=== PATIENT | female | born 1965 | race Caucasian/White ===

== ENCOUNTER → 2018-07-06 07:14 | Outpatient (CLI) | payer OTHER, SELFPAY ==
[2018-07-06 09:55] LABS: TSH w/ Reflex to FT4 0.22 uIU/mL (0.47-4.68)
[2018-07-06 10:20] LABS: Free T4, Direct Thyroxine 0.57 ng/dL (0.78-2.19)
== END ==
PROVIDERS: PCP Family Medicine; Visit Provider Registered Nurse
DX: E03.9 Hypothyroidism, unspecified (principal)
CPT/HCPCS: 36415; 84439; 84443

== ENCOUNTER → 2018-08-12 07:42 | Outpatient (CLI) | payer OTHER, SELFPAY ==
[2018-08-12 10:10] LABS: Thyroid Stimulating Hormone 1.23 uIU/mL (0.47-4.68)
== END ==
PROVIDERS: PCP Internal Medicine; Visit Provider Registered Nurse
DX: E03.9 Hypothyroidism, unspecified (principal)
CPT/HCPCS: 36415; 84443

== ENCOUNTER → 2019-07-23 11:17 | Outpatient (CLI) | payer OTHER, SELFPAY ==
--- NOTE | 2019-07-23 | DI.MG.S_ITS ---
BILATERAL DIGITAL SCREENING MAMMOGRAM 3D/2D WITH CAD: 07/23/2019 CLINICAL: Routine screening. Comparison is made to exams dated: 10/25/2016 mammogram, 06/30/2015 mammogram, and 06/10/2014 mammogram - [facility]. The tissue of both breasts is extremely dense, which lowers the sensitivity of mammography. Current study was also evaluated with a Computer Aided Detection (CAD) system. There is an oval asymmetry with an obscured margin in the left breast posterior depth lateral region seen on the craniocaudal view only. No other significant masses, calcifications, or other findings are seen in either breast. IMPRESSION: INCOMPLETE: NEEDS ADDITIONAL IMAGING EVALUATION The oval asymmetry in the left breast is indeterminate. Additional views with possible ultrasound are recommended. This exam was interpreted at Station ID: [id number]. NOTE: For mammograms, a report in lay terms will be sent to the patient. Approximately 15% of breast malignancies will not be visualized mammographically. In the management of a palpable breast mass, a negative mammogram must not discourage biopsy of a clinically suspicious lesion. Electronically Signed By: Victor M Sterling M.D. ecl/:07/23/2019 17:49:06 letter sent: Additional Imaging Needed ACR BI-RADS Category 0: Incomplete 3340F
== END ==
PROVIDERS: PCP Internal Medicine; Visit Provider Internal Medicine
DX: Z12.31 Encounter for screening mammogram for malignant neoplasm of breast (principal)
CPT/HCPCS: 77063; 77067

== ENCOUNTER → 2019-08-27 10:08 | Outpatient (CLI) | payer OTHER, SELFPAY ==
--- NOTE | 2019-08-27 | DI.MG.S_ITS ---
UNILATERAL LEFT DIGITAL DIAGNOSTIC MAMMOGRAM 3D/2D WITH ADDITIONAL VIEWS: 08/27/2019 CLINICAL: Additional evaluation requested from prior study. Comparison is made to exams dated: 07/23/2019 mammogram, 10/25/2016 mammogram, and 06/30/2015 mammogram - [facility]. The tissue of left breast is extremely dense, which lowers the sensitivity of mammography. The oval asymmetry with indistinct margins in the left breast posterior depth lateral region seen on the craniocaudal view only is not seen on additional views. No other significant masses or calcifications are seen in the breast. IMPRESSION: NEGATIVE There is no mammographic evidence of malignancy. A 1 year screening mammogram is recommended. This exam was interpreted at Station ID: [id number]. NOTE: For mammograms, a report in lay terms will be sent to the patient. Approximately 15% of breast malignancies will not be visualized mammographically. In the management of a palpable breast mass, a negative mammogram must not discourage biopsy of a clinically suspicious lesion. Electronically Signed By: Farhad booth/:08/27/2019 10:53:51 letter sent: Normal Exam ACR BI-RADS Category 1: Negative 3341F
== END ==
PROVIDERS: PCP Internal Medicine; Visit Provider Internal Medicine
DX: R92.8 Other abnormal and inconclusive findings on diagnostic imaging of breast (principal)
CPT/HCPCS: 77065; G0279

== ENCOUNTER → 2020-07-31 09:11 | Outpatient (CLI) | payer OTHER, SELFPAY ==
[2020-08-01 06:54] LABS: COVID19 Sendout Not Detected (Not Detect)
== END ==
PROVIDERS: PCP Internal Medicine; Visit Provider Physician Assistant
DX: Z11.59 Encounter for screening for other viral diseases (principal)
CPT/HCPCS: 87635

== ENCOUNTER → 2020-09-29 15:50 | Outpatient (CLI) | payer OTHER, SELFPAY ==
--- NOTE | 2020-09-29 15:52 | DI.MG.S_ITS ---
BILATERAL DIGITAL SCREENING MAMMOGRAM 3D/2D WITH CAD: 09/29/2020 CLINICAL: Routine screening. Comparison is made to exams dated: 07/23/2019 mammogram, 10/25/2016 mammogram, and 06/30/2015 mammogram - [facility]. The tissue of both breasts is extremely dense, which lowers the sensitivity of mammography. Current study was also evaluated with a Computer Aided Detection (CAD) system. No significant masses, calcifications, or other findings are seen in either breast. There has been no significant interval change. IMPRESSION: NEGATIVE There is no mammographic evidence of malignancy. A 1 year screening mammogram is recommended. This exam was interpreted at Station ID: [id number]. NOTE: For mammograms, a report in lay terms will be sent to the patient. Approximately 15% of breast malignancies will not be visualized mammographically. In the management of a palpable breast mass, a negative mammogram must not discourage biopsy of a clinically suspicious lesion. Electronically Signed By: Corina flor/eelanor:09/29/2020 16:22:45 letter sent: Normal Exam ACR BI-RADS Category 1: Negative 3341F
== END ==
PROVIDERS: PCP Internal Medicine; Referring Provider Internal Medicine; Visit Provider Internal Medicine
DX: Z12.31 Encounter for screening mammogram for malignant neoplasm of breast (principal)
CPT/HCPCS: 77063; 77067

== ENCOUNTER → 2020-12-22 16:09 | Outpatient (CLI) | payer OTHER, SELFPAY ==
[2020-12-22] MEDS: COVID-19 VACC, Ad26(JANSSEN)/PF 0.5 ML IM (16:18)
== END ==
PROVIDERS: PCP Internal Medicine; Visit Provider Internal Medicine
DX: Z23 Encounter for immunization (principal)
CPT/HCPCS: 0031A; 91303

== ENCOUNTER → 2021-04-23 16:36 | Outpatient (CLI) | payer OTHER, SELFPAY ==
[2021-04-23 18:49] LABS: Free T3, Triiodothyronine Free 3.97 pg/mL (2.77-5.27); Free T4, Direct Thyroxine 0.66 ng/dL (0.78-2.19)
[2021-04-23 19:02] LABS: Thyroid Stimulating Hormone 0.535 uIU/mL (0.47-4.68)
[2021-04-23 19:14] LABS: Testosterone 15.5 ng/dL (5.71-77.0)
== END ==
PROVIDERS: PCP Internal Medicine; Referring Provider Internal Medicine; Visit Provider Internal Medicine
DX: E03.9 Hypothyroidism, unspecified (principal)
CPT/HCPCS: 36415; 84403; 84439; 84443; 84481

== ENCOUNTER → 2021-10-26 12:26 | Outpatient (CLI) | payer OTHER, SELFPAY ==
--- NOTE | 2021-10-26 | DI.MG.S_ITS ---
BILATERAL DIGITAL SCREENING MAMMOGRAM 3D/2D WITH CAD: 10/26/2021 CLINICAL: Routine screening. Comparison is made to exams dated: 09/29/2020 mammogram, 08/27/2019 mammogram, 07/23/2019 mammogram, 10/25/2016 mammogram, and 06/30/2015 mammogram - [facility]. The tissue of both breasts is extremely dense, which lowers the sensitivity of mammography. Current study was also evaluated with a Computer Aided Detection (CAD) system. No significant masses, calcifications, or other findings are seen in either breast. There has been no significant interval change. IMPRESSION: NEGATIVE There is no mammographic evidence of malignancy. A 1 year screening mammogram is recommended. This exam was interpreted at Station ID: [id number]. NOTE: For mammograms, a report in lay terms will be sent to the patient. Approximately 15% of breast malignancies will not be visualized mammographically. In the management of a palpable breast mass, a negative mammogram must not discourage biopsy of a clinically suspicious lesion. Electronically Signed By: Fredy baez/eleanor:10/26/2021 13:03:42 letter sent: Normal Exam ACR BI-RADS Category 1: Negative 3341F
== END ==
PROVIDERS: PCP Internal Medicine; Referring Provider Internal Medicine; Visit Provider Internal Medicine
DX: Z12.31 Encounter for screening mammogram for malignant neoplasm of breast (principal)
CPT/HCPCS: 77063; 77067

== ENCOUNTER → 2022-02-09 07:49 | Outpatient (CLI) | payer OTHER, SELFPAY ==
[2022-02-09 09:36] LABS: Add Manual Diff / Slide Review NO; Basophils Absolute Auto 0 /uL (0-100); Basophils Percent Auto 0.7 % (0-2); Eosinophils Absolute Auto 100 /uL (0-450); Eosinophils Percent Auto 2.4 % (2-4); Hematocrit 36.3 % (36-46); Hemoglobin 12.3 g/dL (12.0-16.0); Lymphocytes Absolute Auto 1400 /uL (1100-4500); Lymphocytes Percent Auto 40.3 % (25-40); Mean Corpuscular HGB Conc 33.9 % (30-36); Mean Corpuscular Hemoglobin 33.2 PG (26-34); Mean Corpuscular Volume 97.8 fL (80-100); Monocytes Absolute Auto 300 /uL (0-900); Monocytes Percent Auto 7.7 % (3-14); Neutrophils Absolute Auto 1700 /uL (1500-7000); Neutrophils Percent Auto 48.9 % (50-75); Platelet Count 217 X10^3/uL (150-400); Red Blood Cell Count 3.71 X10^6/uL (4.0-5.2); White Blood Cell Count 3.5 X10^3/uL (4.5-11.0)
[2022-02-09 10:01] LABS: Alanine Aminotransferase 21 IU/L (<35); Albumin 4.5 g/dL (3.5-5.0); Albumin Globulin Ratio 1.6 (1.0-2.8); Alkaline Phosphatase 63 U/L (38-126); Aspartate Aminotransferase 30 IU/L (14-36); BUN Creatinine Ratio 16.7 (6-22); Bilirubin Total 0.5 mg/dL (0.2-1.3); Blood Urea Nitrogen 13 mg/dL (7-17); Carbon Dioxide 28 mmol/L (22-32); Chloride 105 mmol/L (98-107); Cholesterol 210 mg/dL (140-199); Estimated Glomerular Filt Rate > 60 mL/min (>60); Globulin 2.8 g/dL (1.7-4.1); Glucose 95 mg/dL (70-100); HDL Cholesterol 66 mg/dL (40-60); HEMOLYSIS < 15 (0-50); LDL Cholesterol Calculated 132 mg/dL (<100); Potassium 4.3 mmol/L (3.4-5.1); Sodium 139 mmol/L (137-145); Total Protein 7.3 g/dL (6.3-8.2); Triglycerides 61 mg/dL (35-150)
[2022-02-09 10:19] LABS: Free T3, Triiodothyronine Free 3.54 pg/mL (2.77-5.27)
[2022-02-09 10:32] LABS: Thyroid Stimulating Hormone 1.04 uIU/mL (0.47-4.68)
== END ==
PROVIDERS: PCP Internal Medicine; Referring Provider Naturopath; Visit Provider Naturopath
DX: Z00.00 Encounter for general adult medical examination without abnormal findings (principal); E03.9 Hypothyroidism, unspecified
CPT/HCPCS: 36415; 80053; 80061; 84439; 84443; 84481; 85025

== ENCOUNTER 2022-05-18 15:07 | Emergency (ER) | payer OTHER, SELFPAY ==
[2022-05-18 15:21] VITALS: BP 117/74; PULSE 63; RESP 18; TEMP 36.9; O2SAT 99
--- NOTE | 2022-05-18 15:32 | DI.RAD.S_ITS ---
PROCEDURE: XR FINGER LT MIN 2V INDICATIONS: r/o fx TECHNIQUE: AP hand, 2 views of the middle finger(s) acquired. COMPARISON: None. FINDINGS: Minimally displaced tuft fracture of the distal phalanx of the 3rd digit with associated soft tissue swelling and likely subcutaneous emphysema concerning for nail bed injury. No dislocation. No additional fractures. . IMPRESSION: Minimally displaced tuft fracture of the distal phalanx with findings suggestive of a nail bed injury. If nail bed injury is clinically noted, this should be treated as an open fracture. Dictated by: Eduardo Pinto D.O. on 05/18/2022 at 15:04 Approved by: Eduardo Pinto D.O. on 05/18/2022 at 15:06
[2022-05-18] MEDS: ACETAMINOPHEN 325 MG TABLET 975 MG PO (16:20)
[2022-05-18] MEDS: LIDOCAINE 2% INJ MDV 10ML 10 MG INJ (16:22)
[2022-05-18] MEDS: TET,DIPH,PERTUSS(ACELL),VAC/PF 0.5 ML SYRINGE IM (16:22)
[2022-05-18] MEDS: IBUPROFEN 400 MG TABLET 800 MG PO (16:22)
[2022-05-18 17:03] VITALS: BP 125/68; PULSE 58; RESP 18; O2SAT 99
--- NOTE | 2022-05-18 17:25 | ED_ITS ---
HPI - Wound/Laceration <Trev No PA-C - Last Filed: 05/18/22 17:46> General Chief Complaint: Wound/Laceration Stated Complaint: Cut middle finger left Time Seen by Provider: 05/18/22 15:13 Source: patient Mode of arrival: Ambulatory History of Present Illness HPI narrative: Patient to emergency room today with complaint of laceration and bleeding to her left middle finger. Patient states this occurred while she was working in her garden and dropped a big stone on her finger. Patient's CTs happened earlier today while she was working in her garden. Denies any other concerns. Patient states that she has sensation in hand and finger has no numbness or tingling he can move the hand without difficulty. Related Data Home Medications Medication Instructions Recorded Confirmed [[place] Vitamins] ##0 01/17/17 08/15/21 thyroid (pork) 48.75 mg tablet 24.375 mg PO DAILY 04/03/20 08/15/21 (Nature-Throid) Previous Rx's Medication Instructions Recorded methylphenidate HCl 10 mg tablet 10 mg PO BID #60 tabs 02/26/22 sertraline 50 mg tablet 75 mg PO DAILY #135 tabs 02/26/22 cephalexin 500 mg capsule 500 mg PO QID #28 caps 05/18/22 Allergies Allergy/AdvReac Type Severity Reaction Status Date / Time No Known Drug Allergies Allergy Verified 08/15/21 11:22 Review of Systems <Trev No PA-C - Last Filed: 05/18/22 17:46> Review of Systems Narrative: R.O.S.: General: No fever, chills, fatigue or other concerns. Cardiovascular: No chest pain, palpitations or other Cardiovascular related concerns. Respiratory: No S.O.B. or other Respiratory related concerns. HEENT: No congestion, ear pain, rhinorrhea, sore throat or tinnitus Gastrointestinal: No nausea, vomiting or other Gastrointestinal related concerns. Skin: Laceration and pain to left distal middle finger. Neurological: Awake, alert and in not apparent distress. No Headaches, changes in vision or other related neurological concerns. Patient History <Trev No PA-C - Last Filed: 05/18/22 17:46> Medical History Low back pain Surgical History Status post epidural steroid injection Social History Smoking Status: Never smoker Smoking Status: Never smoker Exam <Trev No PA-C - Last Filed: 05/18/22 17:46> Narrative Exam Narrative: Patient has laceration to the distal left middle volar finger that is about 2.5 cm in length. Patient also has a laceration to the nailbed of the distal left middle finger that is about 1 cm in length. The patient's nail is loose and partially intact at the nail bed. The finger has moderate bruising and bleeding at this time. Hand has intact sensation to touch good range of motion and good strength. Initial Vital Signs Initial Vital Signs: Vital Signs Temperature 98.5 F 05/18/22 15:21 Pulse Rate 63 05/18/22 15:21 Respiratory Rate 18 05/18/22 15:21 Blood Pressure 117/74 05/18/22 15:21 Pulse Oximetry 99 05/18/22 15:21 Oxygen Delivery Method 05/18/22 15:21 <Jennifer Cherry DO - Last Filed: 05/20/22 02:20> Initial Vital Signs Initial Vital Signs: Vital Signs Temperature 98.5 F 05/18/22 15:21 Pulse Rate 63 05/18/22 15:21 Respiratory Rate 18 05/18/22 15:21 Blood Pressure 117/74 05/18/22 15:21 Pulse Oximetry 99 05/18/22 15:21 Oxygen Delivery Method 05/18/22 15:21 Procedures <Trev No PA-C - Last Filed: 05/18/22 17:46> Laceration Repair Laceration 1: Site: hand Side (If applicable): left Size (cm): 2.5 Description: other (Laceration to distal volar) Depth: simple, single layer Local Anesthetic: lidocaine 2% Amount of anesthesia used (mL): 10 Skin layer closed with: other (Chromic Gut Eithicon on nail bed and 5.0 Ethilon to volar finger and nail. ) Number of sutures: 8 Technique: simple, interrupted Course <Trev No PA-C - Last Filed: 05/18/22 17:46> Orders Ordered: Discontinued Medications Acetaminophen (Acetaminophen 325 Mg Tablet) 975 mg PO NOW ONE Stop: 05/18/22 16:01 Last Admin: 05/18/22 16:20 Dose: 975 mg Documented By: NATIVIDAD Diphtheria/Tetanus/Acell Pertussis (Diph,Pertuss(Acell),Tet Vac/Pf 0.5 Ml Syringe) 0.5 ml IM .ONCE ONE Stop: 05/18/22 15:57 Last Admin: 05/18/22 16:03 Dose: Not Given Documented By: NATIVDIAD(2) Diphtheria/Tetanus/Acell Pertussis (Tet,Diph,Pertuss(Acell),Vac/Pf 0.5 Ml Syringe) 0.5 ml IM .ONCE ONE Stop: 05/18/22 16:05 Last Admin: 05/18/22 16:22 Dose: 0.5 ml Documented By: NATIVIDAD Ibuprofen (Ibuprofen 400 Mg Tablet) 800 mg PO NOW ONE Stop: 05/18/22 16:01 Last Admin: 05/18/22 16:22 Dose: 800 mg Documented By: NATIVIDAD Lidocaine HCl (Lidocaine 2% Inj Mdv 10ml) 10 mg INJ INTRA-OP ONE Stop: 05/18/22 15:36 Last Admin: 05/18/22 16:22 Dose: 10 mg Documented By: NATIVIDAD Vital Signs Vital signs: Vital Signs - 8 hr 05/18/22 15:21 05/18/22 17:03 Temperature 98.5 F Pulse Rate 63 58 L Respiratory Rate 18 18 Blood Pressure 117/74 125/68 Pulse Oximetry 99 99 Oxygen Delivery Method Room Air Room Air <Jennifer Cherry DO - Last Filed: 05/20/22 02:20> Orders Ordered: Discontinued Medications Acetaminophen (Acetaminophen 325 Mg Tablet) 975 mg PO NOW ONE Stop: 05/18/22 16:01 Last Admin: 05/18/22 16:20 Dose: 975 mg Documented By: NATIVIDAD Diphtheria/Tetanus/Acell Pertussis (Diph,Pertuss(Acell),Tet Vac/Pf 0.5 Ml Syringe) 0.5 ml IM .ONCE ONE Stop: 05/18/22 15:57 Last Admin: 05/18/22 16:03 Dose: Not Given Documented By: NATIVIDAD(2) Diphtheria/Tetanus/Acell Pertussis (Tet,Diph,Pertuss(Acell),Vac/Pf 0.5 Ml Syringe) 0.5 ml IM .ONCE ONE Stop: 05/18/22 16:05 Last Admin: 05/18/22 16:22 Dose: 0.5 ml Documented By: NATIVIDAD Ibuprofen (Ibuprofen 400 Mg Tablet) 800 mg PO NOW ONE Stop: 05/18/22 16:01 Last Admin: 05/18/22 16:22 Dose: 800 mg Documented By: NATIVIDAD Lidocaine HCl (Lidocaine 2% Inj Mdv 10ml) 10 mg INJ INTRA-OP ONE Stop: 05/18/22 15:36 Last Admin: 05/18/22 16:22 Dose: 10 mg Documented By: NATIVIDAD Vital Signs Vital signs: Vital Signs - 8 hr 05/18/22 15:21 05/18/22 17:03 Temperature 98.5 F Pulse Rate 63 58 L Respiratory Rate 18 18 Blood Pressure 117/74 125/68 Pulse Oximetry 99 99 Oxygen Delivery Method Room Air Room Air MDM - Wound/Laceration <Trev No PA-C - Last Filed: 05/18/22 17:46> Imaging Data Extremity x-ray #1: Radiologist's Impression: PROCEDURE:? XR FINGER LT MIN 2V ? INDICATIONS:? r/o fx ? TECHNIQUE:? AP hand, 2 views of the middle finger(s) acquired.? ? COMPARISON:? None. ? FINDINGS:? ? Minimally displaced tuft fracture of the distal phalanx of the 3rd digit with associated soft tissue swelling and likely subcutaneous emphysema concerning for nail bed injury.? No dislocation.? No additional fractures. .? ? IMPRESSION:? Minimally displaced tuft fracture of the distal phalanx with findings suggestive of a nail bed injury.? If nail bed injury is clinically noted, this should be treated as an open fracture. ? ? Dictated by: Eduardo Pinto D.O. on 05/18/2022 at 15:04 ? ? Approved by: Eduardo Pinto D.O. on 05/18/2022 at 15:06 ? [facility] Narrative Medical decision making narrative: Patient to emergency room today with complaint laceration to left distal middle finger that occurred today while she was working in her garden. X-ray was done revealed a tuft fracture to the left distal middle finger. Provider used absorbable chromic gut Ethilon suture to close the laceration on the nail bed. Provided then used 5.0 suture Ethilon suture to insert 5 interruped sutured to close the 2.5 cm laceration on the volar distal middle finger and 3 interrupted sutures to secure the nail to the nail bed. Discharge Plan Departure Patient Disposition: Home Clinical Impression: Laceration Instructions: DI for Laceration Repair Activity Restrictions/Additional Instructions: *You have been diagnosed with laceration to distal left middle finger. I have also referred you to [facility] with Dr Brittany Gordillo. Please follow up with that provider. Also please refrain from allowing your sutured finger to be immersed in water. Also please refrain from any major activity involving your sutured finger. I suggest you return to this Emergency room or our Urgent care for suture removal in 7-10 days. *What to do: *Please continue to take your regular medications as directed. [x ] New medication written as a paper prescription *Please follow up with your primary care provider in 2-3 days, call for an appointment. Let them know you were seen in the Emergency Department and that we ask that you be seen in follow up. We will electronically transmit a record of today's note if your PCP is in our system *If you do not have a primary care provider please contact the [facility] Resource line at [phone]. They will ask some questions about your medical history and help get you set up with a doctor in the community. *Return to Emergency Department if you should have any new, worsening or concerning symptoms, such as [fever greater than 101 F, shaking chills, worsening pain, persistent vomiting or other bothersome symptoms] Prescriptions: New cephalexin 500 mg capsule 500 mg PO QID Qty: 28 0RF No Action Nature-Throid 48.75 mg tablet 24.375 mg PO DAILY sertraline 50 mg tablet 75 mg PO DAILY Qty: 135 3RF methylphenidate HCl 10 mg tablet 10 mg PO BID Qty: 60 0RF [[place] Vitamins] Qty: 0 Referrals: Roselyn Ascencio ARNP [Primary Care Provider] - Xin Gordillo MD [Physician] - (Pt had complicated suture repair of laceration to her distal left middle finger and nail bed. ) Visit Report Forms: Patient Portal/API <Jennifer Cherry DO - Last Filed: 05/20/22 02:20> Cosign ED Attending Cosmonserratature Attestation: I was immediately available in the department for consultation. Documentation has been reviewed. I agree with assessment and plan.
== END 2022-05-18 17:38 | disposition home or self-care (01) ==
PROVIDERS: Emergency Provider Physician Assistant; PCP Internal Medicine
DX: S61.213A Laceration without foreign body of left middle finger without damage to nail, initial encounter (principal); W22.8XXA Striking against or struck by other objects, initial encounter; Z23 Encounter for immunization
CPT/HCPCS: 12001; 73140; 90471; 99283; 99284; 90715

== ENCOUNTER → 2022-12-06 07:59 | Outpatient (CLI) | payer OTHER, SELFPAY ==
--- NOTE | 2022-12-06 | DI.MG.S_ITS ---
BILATERAL DIGITAL SCREENING MAMMOGRAM 3D/2D WITH CAD: 12/06/2022 CLINICAL: Routine screening. Comparison is made to exams dated: 10/26/2021 mammogram, 09/29/2020 mammogram, and 07/23/2019 mammogram - [facility]. Both breasts are extremely dense, which lowers the sensitivity of mammography (category d />75% glandular tissue). Current study was also evaluated with a Computer Aided Detection (CAD) system. No significant masses, calcifications, or other findings are seen in either breast. There has been no significant interval change. IMPRESSION: NEGATIVE There is no mammographic evidence of malignancy. A 1 year screening mammogram is recommended. Based on the Tyrer Cuzick model (a risk assessment model) the patient's lifetime risk is 13.7% and her 10 year risk is 5.1%. According to the ACR, ACS, and NCCN guidelines, an annual breast MRI exam along with mammogram is recommended if the patient's lifetime risk is 20% or greater. This exam was interpreted at Station ID: [id number]. NOTE: For mammograms, a report in lay terms will be sent to the patient. Approximately 15% of breast malignancies will not be visualized mammographically. In the management of a palpable breast mass, a negative mammogram must not discourage biopsy of a clinically suspicious lesion. Electronically Signed By: Dick saunders/eleanor:12/06/2022 12:18:38 letter sent: Normal Exam ACR BI-RADS Category 1: Negative 3341F
== END ==
PROVIDERS: PCP Internal Medicine; Referring Provider Internal Medicine; Visit Provider Internal Medicine
DX: Z12.31 Encounter for screening mammogram for malignant neoplasm of breast (principal)
CPT/HCPCS: 77063; 77067

== ENCOUNTER 2023-01-31 10:27 | Day surgery (SDC) | payer OTHER, SELFPAY ==
[2023-01-31 10:41] VITALS: BP 105/64; PULSE 66; RESP 16; TEMP 35.8; O2SAT 99; BMI 21.7
--- NOTE | 2023-01-31 11:20 | PM.HP.1 ---
History of Present Illness History of Present Illness Date Patient Seen: 01/31/23 Time Patient Seen: 11:20 Chief complaint: Colonoscopy Narrative: Ms. Shrestha presents today for a screening colonoscopy. It has been 10 years since her last exam and it was done at [facility]. I see a visit encounter for around that time by Dr. Coleman but the reports in the historical record are saying ?report not available.? She has no family history of colon cancer though her mother does have ?bowel issues? and diverticula but no cancer; she has had some similar issues that improved after stopping to eat dairy. Otherwise she has no concerning symptoms no bleeding or changes in her bowel habits. [facility] Medical History (Updated 01/31/23 @ 11:23 by Eden Morrison MD) Low back pain Vitamin D deficiency Surgical History Status post epidural steroid injection Social History household members: friend(s) Smoking Status: Never smoker alcohol intake: current Meds Home Medications and Allergies Home Medications Medication Instructions Recorded Confirmed Type [Du [place]ra Vitamins] ##0 01/17/17 01/03/23 History sertraline 50 mg tablet 50 mg PO DAILY #90 tabs 09/20/22 01/31/23 Rx thyroid (pork) 30 mg tablet 30 mg PO DAILY 11/14/22 01/31/23 History ([place] Thyroid) sodium,potassium,mag sulfates 17.5 See Rx Instructions PO .COMPLEX 01/23/23 Rx gram-3.13 gram-1.6 gram oral soln #354 mL (Suprep Bowel Prep Kit) Allergies Allergy/AdvReac Type Severity Reaction Status Date / Time No Known Drug Allergies Allergy Verified 01/31/23 10:39 Exam Vital Signs (past 8 hours): - 01/31/23 10:41 Temperature 96.5 F L Pulse Rate 66 Respiratory Rate 16 Blood Pressure 105/64 Pulse Oximetry 99 Oxygen Delivery Method Room Air Oxygen Delivery Method Room Air Const General: cooperative, healthy appearing and comfortable Eyes General: appearance normal, both eyes and all related structures Resp Effort & Inspection: normal respiratory effort and able to speak in complete sentences GI Palpation: soft and No tender Assessment & Plan Assessment and plan (1) Colon cancer screening: Status: Acute Assessment & Plan narrative: Presents today for screening colonoscopy I discussed the risks benefits and alternatives including but not limited to perforation of the colon and an incomplete exam she fully understands these risks and would like to proceed.
[2023-01-31 12:08] VITALS: BP 89/48; PULSE 70; RESP 20; TEMP 36.1; O2SAT 94
[2023-01-31 12:13] VITALS: BP 91/48; PULSE 60; RESP 12; O2SAT 97
[2023-01-31 12:18] VITALS: BP 98/59; PULSE 62; RESP 18; TEMP 36.2; O2SAT 99
[2023-01-31 12:33] VITALS: BP 108/65; PULSE 57; RESP 16; O2SAT 99
--- NOTE | 2023-01-31 13:13 | P.OP.COLON_ITS ---
Operative Date/Time/Diagnoses Date of procedure: 01/31/23 Pre-op diagnosis: colon cancer screening Post-op diagnosis: same Procedure & Clinicians Study performed: colonoscopy screeing Same procedure as scheduled: Yes Indications: Screening for colon cancer, 10 year follow-up Surgeon: Eden Morrison Procedure Notes Procedure in detail: Patient was taken to the endoscopy suite and placed in a left lateral decubitus position.? With the help of an anesthesiologist conscious sedation was induced and maintained throughout the procedure.? A time-out was performed.? Digital rectal exam was performed there were no masses or strictures.? The colonoscope was then introduced into the anal canal and advanced through to the cecum.? There were some twists and turns in the colon that required abdominal pressure. A photograph was obtained of the appendiceal orifice.? The colonoscope was then withdrawn slowly for the course 14 minutes.? The prep was excellent [place] bowel prep score of 3.? The scope was retroflexed and the hemorrhoidal piles were photographed.? Patient tolerated the procedure well and went in good condition to the postoperative care unit.? No polyps were seen. Specimen(s): none sent Complications: none Post-procedure Recommendations: Colonoscopy in 10 years Plan for aftercare: Unless there is a change in family history or the patient develops any symptoms she may follow-up for screening in 10 years.
== END 2023-01-31 12:57 | disposition home or self-care (01) ==
PROVIDERS: PCP Family Medicine; Referring Provider Surgery; Visit Provider Surgery
PROC: 0DJD8ZZ Inspection of Lower Intestinal Tract, Via Natural or Artificial Opening Endoscopic (ICD-10-PCS; CPT 45378; principal; 2023-01-31 11:30)
DX: Z12.11 Encounter for screening for malignant neoplasm of colon (principal)
CPT/HCPCS: 45378; J2704

== ENCOUNTER → 2023-07-24 10:10 | Outpatient (CLI) | payer OTHER, SELFPAY ==
[2023-07-24 11:08] LABS: Add Manual Diff / Slide Review NO; Basophils Absolute Auto 0 /uL (0-100); Basophils Percent Auto 0.6 % (0-2); Eosinophils Absolute Auto 100 /uL (0-450); Eosinophils Percent Auto 1.4 % (2-4); Hematocrit 37.9 % (36-46); Lymphocytes Absolute Auto 1500 /uL (1100-4500); Lymphocytes Percent Auto 31.1 % (25-40); Mean Corpuscular HGB Conc 34.4 % (30-36); Mean Corpuscular Hemoglobin 33.4 PG (26-34); Mean Corpuscular Volume 97.1 fL (80-100); Monocytes Absolute Auto 300 /uL (0-900); Monocytes Percent Auto 6.9 % (3-14); Neutrophils Absolute Auto 2800 /uL (1500-7000); Platelet Count 217 X10^3/uL (150-400); Red Cell Distribution Width 13.2 % (11.6-14.8); White Blood Cell Count 4.7 X10^3/uL (4.5-11.0)
[2023-07-24 11:27] LABS: Alanine Aminotransferase 27 IU/L (<35); Albumin Globulin Ratio 1.7 (1.0-2.8); Alkaline Phosphatase 75 U/L (38-126); Aspartate Aminotransferase 36 IU/L (14-36); BUN Creatinine Ratio 22.4 (6-22); Bilirubin Total 0.9 mg/dL (0.2-1.3); Blood Urea Nitrogen 13 mg/dL (7-17); C-Reactive Protein Quant < 0.5 mg/dL (<1.0); Calcium 9.5 mg/dL (8.4-10.2); Carbon Dioxide 27 mmol/L (22-32); Chloride 100 mmol/L (98-107); Estimated Glomerular Filt Rate > 60 mL/min (>60); Glucose 94 mg/dL (70-100); Potassium 4.6 mmol/L (3.4-5.1); Sodium 135 mmol/L (137-145)
[2023-07-24 11:29] LABS: HEMOLYSIS 94 (0-50)
[2023-07-24 11:42] LABS: Vitamin D 25 Hydroxy (D3) 61.6 ng/mL (30.0-100.0)
[2023-07-24 11:55] LABS: TSH w/ Reflex to FT4 0.87 uIU/mL (0.47-4.68)
[2023-07-24 12:12] LABS: Vitamin B12 379 pg/mL (239-931)
[2023-07-31 08:13] LABS: Percent Free Testosterone 1.31 % (0.50-2.80); Testosterone Free 0.11 ng/dL (0.10-0.85); Testosterone Total 8.2 ng/dL (.)
== END ==
PROVIDERS: PCP Family Medicine; Referring Provider Family Medicine; Visit Provider Family Medicine
DX: F41.9 Anxiety disorder, unspecified (principal); E55.9 Vitamin D deficiency, unspecified; Z86.59 Personal history of other mental and behavioral disorders; F90.2 Attention-deficit hyperactivity disorder, combined type; F32.9 Major depressive disorder, single episode, unspecified; E03.9 Hypothyroidism, unspecified
CPT/HCPCS: 36415; 80053; 82306; 82607; 84402; 84403; 84443; 85025; 86140

== ENCOUNTER → 2024-01-19 09:52 | Outpatient (CLI) | payer OTHER, SELFPAY ==
[2024-01-19 12:40] LABS: Vitamin D 25 Hydroxy (D3) 78.5 ng/mL (30.0-100.0)
[2024-01-19 18:53] LABS: HEMOLYSIS < 15 (0-50); Potassium 4.4 mmol/L (3.4-5.1)
[2024-01-19 18:54] LABS: Alanine Aminotransferase 19 IU/L (<35); Albumin 4.5 g/dL (3.5-5.0); Albumin Globulin Ratio 1.6 (1.0-2.8); Alkaline Phosphatase 68 U/L (38-126); Aspartate Aminotransferase 27 IU/L (14-36); BUN Creatinine Ratio 26.2 (6-22); Bilirubin Total 0.7 mg/dL (0.2-1.3); Blood Urea Nitrogen 17 mg/dL (7-17); Calcium 9.6 mg/dL (8.4-10.2); Carbon Dioxide 27 mmol/L (22-32); Chloride 105 mmol/L (98-107); Cholesterol 232 mg/dL (140-199); Estimated Glomerular Filt Rate > 60 mL/min (>60); Globulin 2.9 g/dL (1.7-4.1); Glucose 93 mg/dL (70-100); HDL Cholesterol 82 mg/dL (40-60); LDL Cholesterol Calculated 141 mg/dL (<100); Sodium 138 mmol/L (137-145); Total Protein 7.4 g/dL (6.3-8.2); Triglycerides 46 mg/dL (35-150)
[2024-01-20 10:58] LABS: Progesterone, Total 1.98 ng/mL
[2024-01-23 03:33] LABS: Free T4, Direct Thyroxine 1.06 ng/dL (0.78-2.19)
[2024-01-23 03:47] LABS: Thyroid Stimulating Hormone 0.492 uIU/mL (0.47-4.68)
[2024-01-24 15:19] LABS: Estrogen 46 pg/mL (40-244)
== END ==
LOC: LAB 09:54
PROVIDERS: PCP Nurse Practitioner; Referring Provider Nurse Practitioner; Visit Provider Nurse Practitioner
DX: F41.9 Anxiety disorder, unspecified (principal); F32.2 Major depressive disorder, single episode, severe without psychotic features; E03.9 Hypothyroidism, unspecified; F43.21 Adjustment disorder with depressed mood; Z83.3 Family history of diabetes mellitus; Z79.890 Hormone replacement therapy
CPT/HCPCS: 36415; 80053; 80061; 82306; 82672; 84144; 84439; 84443

== ENCOUNTER → 2024-01-22 09:52 | Outpatient (CLI) | payer OTHER, SELFPAY ==
[2024-01-22 11:35] LABS: Hemoglobin A1C% w Est Avg Glu 5.2 % (4.0-6.0)
== END ==
PROVIDERS: PCP Nurse Practitioner; Referring Provider Nurse Practitioner; Visit Provider Nurse Practitioner
DX: Z83.3 Family history of diabetes mellitus (principal); Z79.890 Hormone replacement therapy
CPT/HCPCS: 36415; 83036

== ENCOUNTER → 2024-06-12 08:36 | Outpatient (CLI) | payer BC, SELFPAY ==
[2024-06-12 09:14] LABS: Add Manual Diff / Slide Review NO; Basophils Absolute Auto 0 /uL (0-100); Basophils Percent Auto 0.5 % (0-2); Eosinophils Absolute Auto 100 /uL (0-450); Eosinophils Percent Auto 2.1 % (2-4); Lymphocytes Absolute Auto 1400 /uL (1100-4500); Lymphocytes Percent Auto 38.8 % (25-40); Mean Corpuscular HGB Conc 34.3 % (30-36); Mean Corpuscular Volume 99.2 fL (80-100); Monocytes Absolute Auto 300 /uL (0-900); Monocytes Percent Auto 8.3 % (3-14); Neutrophils Absolute Auto 1900 /uL (1500-7000); Neutrophils Percent Auto 50.3 % (50-75); Platelet Count 196 X10^3/uL (150-400); Red Blood Cell Count 3.53 X10^6/uL (4.0-5.2); Red Cell Distribution Width 13.4 % (11.6-14.8); White Blood Cell Count 3.7 X10^3/uL (4.5-11.0)
[2024-06-12 09:35] LABS: Alanine Aminotransferase 20 IU/L (<35); Albumin 4.2 g/dL (3.5-5.0); Albumin Globulin Ratio 1.8 (1.0-2.8); Alkaline Phosphatase 68 U/L (38-126); Aspartate Aminotransferase 26 IU/L (14-36); BUN Creatinine Ratio 21.1 (6-22); Bilirubin Total 0.7 mg/dL (0.2-1.3); Blood Urea Nitrogen 15 mg/dL (7-17); Carbon Dioxide 25 mmol/L (22-32); Chloride 101 mmol/L (98-107); Cholesterol 213 mg/dL (140-199); Estimated Glomerular Filt Rate > 60 mL/min (>60); Globulin 2.4 g/dL (1.7-4.1); Glucose 98 mg/dL (80-110); HDL Cholesterol 84 mg/dL (40-60); HEMOLYSIS < 15 (0-50); LDL Cholesterol Calculated 120 mg/dL (<100); Potassium 4.4 mmol/L (3.4-5.1); Sodium 133 mmol/L (137-145); Total Protein 6.6 g/dL (6.3-8.2); Triglycerides 45 mg/dL (35-150)
[2024-06-12 09:46] LABS: Free T3, Triiodothyronine Free 4.59 pg/mL (2.77-5.27); Free T4, Direct Thyroxine 0.79 ng/dL (0.78-2.19)
[2024-06-12 09:59] LABS: Thyroid Stimulating Hormone 0.656 uIU/mL (0.47-4.68)
[2024-06-17 12:36] LABS: Estrogen 50 pg/mL (40-244)
[2024-06-18 12:36] LABS: Testosterone Free 0.25 ng/dL (0.10-0.85); Testosterone Total 18.9 ng/dL (7.0-40.0)
[2024-06-25 08:36] LABS: Free Progesterone 0.33 ng/dL (.); Progesterone, Serum 11 ng/dL (.)
== END ==
PROVIDERS: PCP Family Medicine; Referring Provider Family Medicine; Visit Provider Family Medicine
DX: Z13.220 Encounter for screening for lipoid disorders (principal); F43.21 Adjustment disorder with depressed mood; E03.9 Hypothyroidism, unspecified; F90.2 Attention-deficit hyperactivity disorder, combined type; F41.9 Anxiety disorder, unspecified; Z79.890 Hormone replacement therapy
CPT/HCPCS: 36415; 80053; 80061; 82672; 84144; 84402; 84403; 84439; 84443; 84481; 84999; 85025

== ENCOUNTER → 2025-05-04 10:42 | Outpatient (CLI) | payer BC, SELFPAY ==
[2025-05-04 12:02] LABS: Add Manual Diff / Slide Review NO; Hematocrit 38.9 % (36-46); Hemoglobin 13.3 g/dL (12.0-16.0); Lymphocytes Absolute Auto 1300 /uL (1100-4500); Mean Corpuscular HGB Conc 34.0 % (30-36); Mean Corpuscular Hemoglobin 33.9 PG (26-34); Mean Corpuscular Volume 99.7 fL (80-100); Platelet Count 221 X10^3/uL (150-400)
[2025-05-04 12:11] LABS: Alanine Aminotransferase 22 IU/L (<35); Albumin 5.0 g/dL (3.5-5.0); Albumin Globulin Ratio 1.7 (1.0-2.8); Alkaline Phosphatase 73 U/L (38-126); Blood Urea Nitrogen 16 mg/dL (7-17); Calcium 9.4 mg/dL (8.4-10.2); Carbon Dioxide 26 mmol/L (22-32); Chloride 102 mmol/L (98-107); Cholesterol 234 mg/dL (140-199); Estimated Glomerular Filt Rate > 60 mL/min (>60); Globulin 2.9 g/dL (1.7-4.1); Glucose 96 mg/dL (70-99); HDL Cholesterol 73 mg/dL (40-60); HEMOLYSIS < 15 (0-50); Potassium 4.1 mmol/L (3.4-5.1); Sodium 137 mmol/L (137-145); Total Protein 7.9 g/dL (6.3-8.2); Triglycerides 75 mg/dL (35-150)
[2025-05-04 12:29] LABS: Free T3, Triiodothyronine Free 4.13 pg/mL (2.77-5.27); Free T4, Direct Thyroxine 0.90 ng/dL (0.78-2.19)
[2025-05-04 12:42] LABS: Thyroid Stimulating Hormone 0.468 uIU/mL (0.47-4.68)
== END ==
PROVIDERS: PCP Family Medicine; Referring Provider Family Medicine; Visit Provider Family Medicine
DX: Z00.00 Encounter for general adult medical examination without abnormal findings (principal); E03.9 Hypothyroidism, unspecified; Z79.890 Hormone replacement therapy
CPT/HCPCS: 36415; 80053; 80061; 82672; 84144; 84402; 84403; 84439; 84443; 84481; 84999; 85025

== ENCOUNTER → 2025-06-22 12:37 | Outpatient (CLI) | payer BC, SELFPAY | PROVIDERS: PCP Family Medicine; Referring Provider Family Medicine; Visit Provider Family Medicine | DX: Z51.81 Encounter for therapeutic drug level monitoring (principal); Z79.890 Hormone replacement therapy | CPT/HCPCS: 36415; 82672; 84144; 84999 ==

== ENCOUNTER → 2025-06-23 10:56 | Outpatient (CLI) | payer BC, SELFPAY ==
--- NOTE | 2025-06-23 10:57 | DI.RAD.S_ITS ---
PROCEDURE: XR DEXA AXIAL SKELETON INDICATIONS: screen COMPARISON: None. FINDINGS: Lumbar Spine: Bone mineral density 0.905 g/cm2, T score -1.3 Left Femoral Neck: Bone mineral density 0.636 g/cm2, T score -1.9. Left Hip: Bone mineral density 0.841 g/cm2, T score -0.8 Fracture Risk Calculation (when applicable): 10-year fracture risk of a major osteoporotic fracture 14 percent and of a hip fracture 1.9 percent. (T score greater or equal to -1.0 to: NORMAL) (T score from -1.1 to -2.4: OSTEOPENIA) (T score less than or equal to -2.5: OSTEOPOROSIS) IMPRESSION: Osteopenia Follow-up guidelines as follows: Osteoporosis: Consider a repeat DEXA and Vertebral Fracture Assessment (VFA) exam in 2 years or sooner if medically necessary, to reassess this patient's status. Osteopenia: Consider a repeat DEXA in 2-3 years to reassess this patient's status, or if there is a new clinical indication. Normal: Consider a repeat DEXA in 5 years or sooner, or if there is a new clinical indication. All treatment decisions require clinical judgment and consideration of individual patient factors, including patient preferences, comorbidities, previous drug use, risk factors not captured in the FRAX model (e.g., frailty, falls, vitamin D deficiency, increased bone turnover, interval significant decline in bone density ) and possible under- or over-estimation of fracture risk by FRAX. In addition, the NOF Guide recommends that FDA-approved medical therapies be considered in postmenopausal women and men age >= 50 years with a: * Hip or vertebral (clinical or morphometric) fracture * T-score of <=-2.5 at the spine or hip * Ten-year fracture probability by FRAX of >= 3% for hip fracture or >=20% for major osteoporotic fracture. Dictated by: Fausto Villela M.D. on 06/27/2025 at 15:53 Approved by: Fausto Villela M.D. on 06/27/2025 at 15:54
== END ==
PROVIDERS: PCP Family Medicine; Referring Provider Family Medicine; Visit Provider Family Medicine
DX: Z13.820 Encounter for screening for osteoporosis (principal); M85.89 Other specified disorders of bone density and structure, multiple sites
CPT/HCPCS: 77080

== ENCOUNTER → 2025-09-03 13:55 | Outpatient (CLI) | payer BC, SELFPAY ==
--- NOTE | 2025-09-03 13:56 | DI.MG.S_ITS ---
MM screening mammo BI: 09/03/2025. BI-RADS: 1 CLINICAL: 60-year old female for bilateral screening mammogram. Tyrer-Cuzick lifetime risk of 7.2%. No personal or first-degree family history of breast cancer. PRIOR EXAMS 12/06/2022, 10/26/2021, 09/29/2020, 08/27/2019. MAMMOGRAPHY TECHNIQUE: 2D and 3D (tomosynthesis) digital mammographic views obtained, with additional images as needed for full coverage. Current study was also evaluated with a Computer Aided Detection (CAD) system. DENSITY C. The breasts are heterogeneously dense, which may obscure small masses. MAMMOGRAPHY FINDINGS Bilateral: No suspicious mass, asymmetry, microcalcification, or other abnormality seen. IMPRESSION: * No evidence of malignancy. RECOMMENDATIONS Bilateral * Annual screening mammography. OVERALL ASSESSMENT CATEGORY BI-RADS-1: Negative. The [employer] recommends annual screening mammography beginning at age 40 for women with average risk of breast cancer. ELECTRONICALLY SIGNED: Rommel Lau M.D. on 09/05/2025 at 07:49:10 AM PT Interpreting Station ID: [id number]
== END ==
LOC: MAMMO 13:55
PROVIDERS: Family Provider Family Medicine; PCP Family Medicine; Referring Provider Family Medicine; Visit Provider Family Medicine
DX: Z12.31 Encounter for screening mammogram for malignant neoplasm of breast (principal); R92.333 Mammographic heterogeneous density, bilateral breasts
CPT/HCPCS: 77063; 77067

== ENCOUNTER → 2025-09-30 08:22 | Outpatient (CLI) | payer BC, SELFPAY | PROVIDERS: Family Provider Family Medicine; PCP Family Medicine; Referring Provider Family Medicine; Visit Provider Family Medicine | DX: R79.89 Other specified abnormal findings of blood chemistry (principal) | CPT/HCPCS: 36415; 82672 ==